=== PATIENT | male | born 1980 ===

== ENCOUNTER 2021-02-04 18:16 | Emergency (ER) | payer OTHER, MEDICAID, SELFPAY ==
[2021-02-04 20:05] VITALS: BP 143/77; PULSE 67; RESP 16; TEMP 37.2; O2SAT 99
--- NOTE | 2021-02-04 20:30 | PC.NURSE ---
received ceftriaxone IM 2 hour prior to arrival in ED.
--- NOTE | 2021-02-04 20:33 | ED.SKABFB ---
HPI - Skin/Abscess/Foreign Bdy General Chief complaint: Skin/Abscess/Foreign Body Stated complaint: right hand injury, red and puffy Time Seen by Provider: 02/04/21 20:22 Source: patient Mode of arrival: Ambulatory Limitations: no limitations History of Present Illness HPI narrative: Patient is a 40-year-old male here for evaluation of redness to his right hand. He has had a prior injury to his right hand requiring surgery and also tendon and nerve repair. This mostly involves the thumb and the index finger. He was seen by a primary provider who thought that he had an abscess and was told to come to the emergency department for further evaluation. Related Data Home Medications Medication Instructions Recorded Confirmed Continuous Blood Gluc Sensor #1 ea 02/03/21 02/04/21 Insulin Disposable Pump Mis #1 ea 02/03/21 02/04/21 insulin aspart U-100 100 unit/mL 1 sliding scale dose SUBCUT 02/03/21 02/04/21 subcutaneous solution USEASDIRECTD Previous Rx's Medication Instructions Recorded doxycycline hyclate 100 mg PO BID 7 Days #14 tab 02/04/21 glucose blood strip #150 ea 02/04/21 Allergies Allergy/AdvReac Type Severity Reaction Status Date / Time No Known Drug Allergies Allergy Verified 02/04/21 14:10 Review of Systems Constitutional Constitutional: Denies fever(s) Musculoskeletal Musculoskeletal: Denies arthralgias and Denies myalgias Integumentary/Breasts Comments: Redness and swelling to right hand Neurologic Comments: He already has numbness to his index finger. He reports no change in any neurologic status. Hematologic/Lymphatic On Anticoagulants: No Allergic/Immunologic Allergic/Immunologic: Denies urticaria Patient History Medical History Infection of right hand Type 1 diabetes mellitus without complications Social History Smoking Status: Never smoker Smoking Status: Never smoker Exam Initial Vital Signs Initial Vital Signs: Vital Signs Temperature 98.9 F 02/04/21 20:05 Pulse Rate 67 02/04/21 20:05 Respiratory Rate 16 02/04/21 20:05 Blood Pressure 143/77 H 02/04/21 20:05 Pulse Oximetry 99 02/04/21 20:05 Const General: cooperative and comfortable Cardio Pulses: radial pulses present on the right Skin Other: Area of redness involving the area between his thumb and index finger in his right hand. It does extend from the pulmonary area to the dorsum of his hand. Does not extend up his thumb. Does not extend up as a next finger. Neuro Other: Does have decreased sensation to his index finger but this is not new. Extrem General: capillary refill normal Psych Appearance: grossly normal and well kempt Course Orders Ordered: Discontinued Medications Doxycycline Hyclate (Doxycycline Hyclate 100 Mg Tablet) 100 mg PO NOW ONE Stop: 02/04/21 20:34 Last Admin: 02/04/21 20:39 Dose: 100 mg Documented by: SANDRO Vital Signs Vital signs: Vital Signs - 8 hr 02/04/21 20:05 Temperature 98.9 F Pulse Rate 67 Respiratory Rate 16 Blood Pressure 143/77 H Pulse Oximetry 99 MDM - Skin/Abscess/Foreign Bdy Lab Data Attestation: I reviewed the patient's lab results. Result diagrams: 02/04/21 20:19 02/04/21 20:19 Labs: Lab Results 02/04/21 02/04/21 02/04/21 Range/Units 20:19 20:19 20:19 WBC 7.6 (4.5-11.0) X10^3/uL RBC 4.54 (4.5-5.9) X10^6/uL Hgb 13.4 L (13.5-17.5) g/dL Hct 39.8 L (41-53) % MCV 87.6 (80-100) fL MCH 29.5 (26-34) PG MCHC 33.7 (30-36) % RDW 13.1 (11.6-14.8) % Plt Count 430 H (150-400) X10^3/uL Neut % (Auto) 58.1 (50-75) % Lymph % (Auto) 30.7 (25-40) % Mitchell % (Auto) 7.8 (3-14) % Eos % (Auto) 2.3 (2-4) % Baso % (Auto) 1.1 (0-2) % Neut # (Auto) 4400 (2792-7465) /uL Lymph # (Auto) 2300 (7855-8078) /uL Mitchell # (Auto) 600 (0-900) /uL Eos # (Auto) 200 (0-450) /uL Baso # (Auto) 100 (0-100) /uL PT 11.5 (10.1-12.7) SECONDS INR 1.0 (0.9-1.3) APTT 39 H (26.4-36.2) SECONDS Sodium 140 (137-145) mmol/L Potassium 3.8 (3.4-5.1) mmol/L Chloride 105 (98-107) mmol/L Carbon Dioxide 25 (22-32) mmol/L BUN 17 (9-20) mg/dL Creatinine 1.03 (0.66-1.25) mg/dL Estimated GFR > 60.0 (>60) mL/min BUN/Creatinine Ratio 16.5 (6-22) Glucose 157 H (70-100) mg/dL Lactate (0.7-2.1) mmol/L Calcium 9.6 (8.4-10.2) mg/dL Total Bilirubin 0.5 (0.2-1.3) mg/dL AST 29 (17-59) IU/L ALT 18 (<50) IU/L Alkaline Phosphatase 67 (38-126) U/L Total Protein 7.9 (6.3-8.2) g/dL Albumin 4.5 (3.5-5.0) g/dL Globulin 3.4 (1.7-4.1) g/dL Albumin/Globulin Ratio 1.3 (1.0-2.8) Lipase 22 L (23-300) U/L Procalcitonin 0.04 (<0.5) ng/mL 02/04/ Range/Units 20:19 WBC (4.5-11.0) X10^3/uL RBC (4.5-5.9) X10^6/uL Hgb (13.5-17.5) g/dL Hct (41-53) % MCV (80-100) fL MCH (26-34) PG MCHC (30-36) % RDW (11.6-14.8) % Plt Count (150-400) X10^3/uL Neut % (Auto) (50-75) % Lymph % (Auto) (25-40) % Mitchell % (Auto) (3-14) % Eos % (Auto) (2-4) % Baso % (Auto) (0-2) % Neut # (Auto) (2064-8753) /uL Lymph # (Auto) (7376-3576) /uL Mitchell # (Auto) (0-900) /uL Eos # (Auto) (0-450) /uL Baso # (Auto) (0-100) /uL PT (10.1-12.7) SECONDS INR (0.9-1.3) APTT (26.4-36.2) SECONDS Sodium (137-145) mmol/L Potassium (3.4-5.1) mmol/L Chloride (98-107) mmol/L Carbon Dioxide (22-32) mmol/L BUN (9-20) mg/dL Creatinine (0.66-1.25) mg/dL Estimated GFR (>60) mL/min BUN/Creatinine Ratio (6-22) Glucose (70-100) mg/dL Lactate 0.9 (0.7-2.1) mmol/L Calcium (8.4-10.2) mg/dL Total Bilirubin (0.2-1.3) mg/dL AST (17-59) IU/L ALT (<50) IU/L Alkaline Phosphatase (38-126) U/L Total Protein (6.3-8.2) g/dL Albumin (3.5-5.0) g/dL Globulin (1.7-4.1) g/dL Albumin/Globulin Ratio (1.0-2.8) Lipase (23-300) U/L Procalcitonin (<0.5) ng/mL MDM Narrative Medical decision making narrative: His labs are reassuring. He does have redness and warmth to the area between his thumb and index finger on his right hand that is concerning for cellulitis. Bedside ultrasound does not show any deep abscess. He has unchanged neurologic status. His vascular status is unremarkable. Is nontoxic appearing. We did discuss potentially doing a needle aspiration to confirm that there was no abscess but given the bedside ultrasound of feel that this is unlikely. Will place the patient on antibiotics. No indication for admission in the hospital. He was given return precautions and follow-up instructions. He expressed understanding and agreement. Discharge Plan Departure Patient Disposition: Home Clinical Impression: Cellulitis Instructions: DI for Cellulitis -- Adult Activity Restrictions/Additional Instructions: I recommend that you take the antibiotics as directed. You can shower like normal and use soap and water like normal. If the redness worsens please return to the emergency department for further evaluation. Contact her primary provider for follow-up. Prescriptions: New doxycycline hyclate 100 mg tablet 100 mg PO BID 7 Days Qty: 14 RF: 0 No Action (DME) glucose blood strip See Rx Instructions .Route .MEDSUPPLY Qty: 150 RF: 3 insulin aspart U-100 100 unit/mL solution 1 sliding scale dose SUBCUT USEASDIRECTD RF: 0 (DME) Insulin Disposable Pump Mis 0 .Route .MEDSUPPLY Qty: 1 RF: 0 (DME) Continuous Blood Gluc Sensor 0 .Route .MEDSUPPLY Qty: 1 RF: 0 Referrals: Ariana Steinberg PA-C [Primary Care Provider] -
[2021-02-04] MEDS: DOXYCYCLINE HYCLATE 100 MG TABLET PO (20:39)
[2021-02-04 20:40] VITALS: BP 140/70; PULSE 79; RESP 14; O2SAT 99
[2021-02-04 20:48] LABS: Add Manual Diff / Slide Review NO; Basophils Absolute Auto 100 /uL (0-100); Basophils Percent Auto 1.1 % (0-2); Eosinophils Absolute Auto 200 /uL (0-450); Eosinophils Percent Auto 2.3 % (2-4); Hematocrit 39.8 % (41-53); Hemoglobin 13.4 g/dL (13.5-17.5); Lymphocytes Absolute Auto 2300 /uL (1100-4500); Lymphocytes Percent Auto 30.7 % (25-40); Mean Corpuscular HGB Conc 33.7 % (30-36); Mean Corpuscular Hemoglobin 29.5 PG (26-34); Mean Corpuscular Volume 87.6 fL (80-100); Monocytes Absolute Auto 600 /uL (0-900); Monocytes Percent Auto 7.8 % (3-14); Neutrophils Absolute Auto 4400 /uL (1500-7000); Neutrophils Percent Auto 58.1 % (50-75); Platelet Count 430 X10^3/uL (150-400); Red Blood Cell Count 4.54 X10^6/uL (4.5-5.9); Red Cell Distribution Width 13.1 % (11.6-14.8); White Blood Cell Count 7.6 X10^3/uL (4.5-11.0)
[2021-02-04 20:59] LABS: Prothrombin Time 11.5 SECONDS (10.1-12.7)
[2021-02-04 21:02] LABS: PTT Partial Thromboplastin Tim 39 SECONDS (26.4-36.2)
[2021-02-04 21:04] LABS: Alanine Aminotransferase 18 IU/L (<50); Albumin 4.5 g/dL (3.5-5.0); Albumin Globulin Ratio 1.3 (1.0-2.8); Alkaline Phosphatase 67 U/L (38-126); Aspartate Aminotransferase 29 IU/L (17-59); BUN Creatinine Ratio 16.5 (6-22); Bilirubin Total 0.5 mg/dL (0.2-1.3); Blood Urea Nitrogen 17 mg/dL (9-20); Calcium 9.6 mg/dL (8.4-10.2); Carbon Dioxide 25 mmol/L (22-32); Chloride 105 mmol/L (98-107); Estimated Glomerular Filt Rate > 60.0 mL/min (>60); Globulin 3.4 g/dL (1.7-4.1); Glucose 157 mg/dL (70-100); HEMOLYSIS < 15 (0-50); Lactate (Lactic Acid) 0.9 mmol/L (0.7-2.1); Lipase 22 U/L (23-300); Potassium 3.8 mmol/L (3.4-5.1); Sodium 140 mmol/L (137-145); Total Protein 7.9 g/dL (6.3-8.2)
[2021-02-04 21:20] LABS: Procalcitonin 0.04 ng/mL (<0.5)
== END 2021-02-04 21:29 | disposition home or self-care (01) ==
PROVIDERS: Emergency Provider Emergency Medicine; PCP Physician Assistant Medical
DX: L03.113 Cellulitis of right upper limb (principal)
CPT/HCPCS: 36415; 80053; 83605; 83690; 84145; 85025; 85610; 85730; 99283

== ENCOUNTER 2021-02-07 10:34 | Emergency (ER) | payer OTHER, MEDICAID, SELFPAY ==
[2021-02-07 10:42] VITALS: BP 148/88; PULSE 76; RESP 16; TEMP 35.9; O2SAT 100; BMI 28.0
--- NOTE | 2021-02-07 12:28 | DI.RAD.S_ITS ---
PROCEDURE: XR HAND RT MIN 3V INDICATIONS: INFECTION right hand TECHNIQUE: 3 views of the hand(s) acquired. COMPARISON: None. FINDINGS: Bones: There is no fracture or dislocation. There is slight flexion deformity of the index finger. Degenerative changes are noted most prominent within the distal interphalangeal joint of the index finger as well as the thumb Soft tissues: Soft tissue swelling is noted most prominent along the index finger. No radiopaque foreign body or soft tissue gas identified. IMPRESSION: Soft tissue swelling without radiopaque foreign body or subcutaneous gas. Degenerative changes of the thumb and index finger. Flexion deformity of the index finger. Dictated by: Yosef Edmonds D.O. on 02/07/2021 at 11:49 Approved by: Yosef Edmonds D.O. on 02/07/2021 at 11:51
--- NOTE | 2021-02-07 12:42 | ED.SKABFB ---
HPI - Skin/Abscess/Foreign Bdy General Chief complaint: Skin/Abscess/Foreign Body Stated complaint: right hand infection Time Seen by Provider: 02/07/21 12:42 Source: patient Mode of arrival: Ambulatory Limitations: no limitations History of Present Illness HPI narrative: This is a 40-year-old male comes to emergency department with complaint of purulent fluid draining from the of his hand. Patient had a chain saw injury, this was several months ago he was seen at [facility] by Hand surgery and states he had surgical repair. Sound like he had to go back for recurrent repair. The area had almost completely healed but there was 1 small area that had prolonged healing but was not fully open. Patient states that he developed redness he was seen here on the by Dr. Holguin. Bedside ultrasound at that time did not show fluid collection he was given a prescription for doxycycline. Patient states that that he did not start this prescription and was instead had Bactrim called in by the hand surgeon. Patient states last night he had increasing swelling and pain and drained fluid. He was able to show me a video and purulent fluid was glued draining from the palmar side of his hand. He states the redness is mostly improved except for 1 small location. He has not had fevers. Has not had any other systemic symptoms. He does not have full range of motion of his 2nd digit but this has been present since his initial injury and is not new. He does not appreciate new numbness or tingling or weakness in his other digits. Patient is insulin-dependent diabetic. Related Data Home Medications Medication Instructions Recorded Confirmed Continuous Blood Gluc Sensor #1 ea 02/03/21 02/04/21 Insulin Disposable Pump Mis #1 ea 02/03/21 02/04/21 insulin aspart U-100 100 unit/mL 1 sliding scale dose SUBCUT 02/03/21 02/04/21 subcutaneous solution USEASDIRECTD Previous Rx's Medication Instructions Recorded glucose blood strip #150 ea 02/04/21 doxycycline hyclate 100 mg PO BID #20 tab 02/07/21 Allergies Allergy/AdvReac Type Severity Reaction Status Date / Time No Known Drug Allergies Allergy Verified 02/04/21 14:10 Review of Systems Review of Systems ROS Unobtainable: All systems reviewed & are unremarkable except as noted in HPI and below Patient History Medical History Infection of right hand Type 1 diabetes mellitus without complications Social History Smoking Status: Never smoker Smoking Status: Never smoker Substance Use Type: does not use Exam Narrative Exam Narrative: GENERAL: Alert and oriented x three, well nourished male in mild distress. HEENT: Head normocephalic, atraumatic, EOMI, pupils reactive, face symmetric, moist mucous membranes NECK: Supple, full range of motion CARDIOVASCULAR: Regular rate and rhythm without murmurs, rubs or gallops. RESPIRATORY: Breath sounds equal bilaterally, no wheezes rales or rhonchi. ABDOMEN: Soft, nontender. Normoactive bowel sounds all 4 quadrants. No guarding or rebound, rigidity, no mass EXTREMITIES: Normal range of motion except for the 2nd digit of patients right hand. Patient has his finger held mildly in flexion, he has difficulty falling extending it. He states this is not new. Patient has sensation to touch throughout all 5 fingers with cap refill less than 2 seconds. Patient has open wound draining a small amount of purulent fluid with palpation on the palmar side of his hand over the 2nd metacarpal. There is some blister which is present. Patient also has some mild erythema extending just over that area and over the dorsum of the hand. It does not appear to be extending significantly beyond the line drawn on 02/04/2021. Patient does have tenderness over the palmar side of a as well as the dorsum at the area of erythema. NEUROLOGICAL: Cranial nerves II through XII grossly intact. Moving all extremities SKIN: Warm, dry see above. Initial Vital Signs Initial Vital Signs: Vital Signs Temperature 96.7 F L 02/07/21 10:42 Pulse Rate 76 02/07/21 10:42 Respiratory Rate 16 02/07/21 10:42 Blood Pressure 148/88 H 02/07/21 10:42 Pulse Oximetry 100 02/07/21 10:42 Course Orders Ordered: ED Orders 02/07/21 12:28 XR hand RT min 3V Stat 02/07/21 13:00 Complete Blood Count AUTO DIFF Stat Comprehensive Metabolic Panel Stat Procalcitonin Stat Discontinued Medications Ibuprofen (Ibuprofen 400 Mg Tablet) 800 mg PO NOW ONE Stop: 02/07/21 13:55 Last Admin: 02/07/21 13:57 Dose: 800 mg Documented by: JOEL Reevaluation(s) Reevaluation #1: Patient would like to leave he was asked to stand till we tapped with the hand surgeon at [facility]. Patient was given ibuprofen 800 mg. He has had additional with some minimal amount of purulent drainage from his hand. Labs and x-ray do not show any acute changes. Patient updated. Patient was able to update me and he has been taking bactrim instead of doxycycline. Time: 14:07 Reevaluation #2: Patient is aware of plan from the hand surgeon. He was given saline as well as some bandaging materials for home and is comfortable with this plan. Time: 15:48 Consultations Consultation #1: Dr. Girard the hand surgeon was able to view patient's email along with the imaging that patient had sent of his abscess draining recommends soapy soaks with saline for 15 minutes twice daily. Dry and bandage. Plan to heal by secondary intention. Patient to continue Bactrim. Time: 15:44 Vital Signs Vital signs: Vital Signs - 8 hr 02/07/21 15:50 Pulse Rate 80 Respiratory Rate 12 Blood Pressure 136/82 Pulse Oximetry 98 MDM - Skin/Abscess/Foreign Bdy Lab Data Attestation: I reviewed the patient's lab results. Result diagrams: 02/07/21 13:00 02/07/21 13:00 Labs: Lab Results 02/07/21 02/07/21 02/07/21 Range/Units 13:00 13:00 13:00 WBC 6.2 (4.5-11.0) X10^3/uL RBC 4.69 (4.5-5.9) X10^6/uL Hgb 14.1 (13.5-17.5) g/dL Hct 41.0 (41-53) % MCV 87.5 (80-100) fL MCH 30.1 (26-34) PG MCHC 34.4 (30-36) % RDW 13.3 (11.6-14.8) % Plt Count 441 H (150-400) X10^3/uL Neut % (Auto) 64.8 (50-75) % Lymph % (Auto) 26.3 (25-40) % Amite % (Auto) 6.1 (3-14) % Eos % (Auto) 1.6 L (2-4) % Baso % (Auto) 1.2 (0-2) % Neut # (Auto) 4000 (5568-1786) /uL Lymph # (Auto) 1600 (9868-0663) /uL Amite # (Auto) 400 (0-900) /uL Eos # (Auto) 100 (0-450) /uL Baso # (Auto) 100 (0-100) /uL Sodium 140 (137-145) mmol/L Potassium 4.2 (3.4-5.1) mmol/L Chloride 107 (98-107) mmol/L Carbon Dioxide 25 (22-32) mmol/L BUN 14 (9-20) mg/dL Creatinine 1.17 (0.66-1.25) mg/dL Estimated GFR > 60.0 (>60) mL/min BUN/Creatinine Ratio 12.0 (6-22) Glucose 84 (70-100) mg/dL Calcium 9.6 (8.4-10.2) mg/dL Total Bilirubin 1.1 (0.2-1.3) mg/dL AST 29 (17-59) IU/L ALT 20 (<50) IU/L Alkaline Phosphatase 69 (38-126) U/L Total Protein 8.0 (6.3-8.2) g/dL Albumin 4.7 (3.5-5.0) g/dL Globulin 3.3 (1.7-4.1) g/dL Albumin/Globulin Ratio 1.4 (1.0-2.8) Procalcitonin 0.04 (<0.5) ng/mL Imaging Data Extremity x-ray #1: Radiologist's Impression: [address] [id number] ReportSigned Patient: Constantine Reyes JMR#: [id number]: [id number]:[id number]/Sex: 40 / MDate of Service: 02/07/21Loc: EDAccession Number: [id number] Procedure: XR hand RT min 3V Ordering Provider: Yessy Alvarez D.O. PROCEDURE: XR HAND RT MIN 3V INDICATIONS: INFECTION right hand TECHNIQUE: 3 views of the hand(s) acquired. COMPARISON: None. FINDINGS: Bones: There is no fracture or dislocation. There is slight flexion deformity of the index finger. Degenerative changes are noted most prominent within the distal interphalangeal joint of the index finger as well as the thumb Soft tissues: Soft tissue swelling is noted most prominent along the index finger. No radiopaque foreign body or soft tissue gas identified. IMPRESSION: Soft tissue swelling without radiopaque foreign body or subcutaneous gas. Degenerative changes of the thumb and index finger. Flexion deformity of the index finger. Dictated by: Yosef Edmonds D.O. on 02/07/2021 at 11:49 Approved by: Yosef Edmonds D.O. on 02/07/2021 at 11:51 MDM Narrative Medical decision making narrative: 40 year old male with complaint of recent infection in the last several days in his hand s/p chainsaw injury with multiple surgical repairs several months ago. Patient started Bactrim which is recommended by his hand surgeon. He did not take doxycycline which was prescribed from the emergency department. Overnight he developed increasing swelling and had a abscess which opened and drained purulent fluid from his hand. It appears to have drained almost all the fluid and unable to express any significant amount in the department. Patient is an insulin-dependent diabetic and his area of infection is over the area that he had his surgical repair. He is also [id number] which is the hand where the infection is present. The hand Fellow was able to view imaging that was sent by the patient himself they recommend soapy saline soaks for 15 minutes twice daily and bandaging with patient to continue with his follow-up this Tuesday. Patient is to continue with Bactrim he was prescribed. This was relayed to the patient he is comfortable with this plan. I also related that the hand surgeon states that the plan is for this to by secondary intention and allowed to continue to drain at this time. Patient was encouraged to return if he has any worsening symptoms. He states that the swelling and redness does seem to be improving after draining while here in the department. Patient was very patient while awaiting follow-up with the hand fellow. Discharge Plan Departure Patient Disposition: Home Clinical Impression: Abscess of hand Activity Restrictions/Additional Instructions: Follow up with your hand surgeon on Tuesday. I spoke with the hand fellow Dr. Girard. He recommends soaking your hand in soapy, saline twice daily and re-bandage and allow to drain. He was able to view your pictures. I would recommend continuing antibiotics at this time the recommend continuing your Bactrim. Prescription at [facility] pharmacy. Wound Care: Keep wound(s) clean and dry. Wash twice daily with soap and water only. Do not use over the counter products (alcohol or peroxide)on the wounds unless instructed by a physician. If wound condition worsens (increased/expanding redness, developing fluid blisters, or worsening pain), either contact your doctor for an urgent re-assessment , or return to the Emergency Department. Return to the Emergency Department for any new or worsening symptoms. Return if fever greater than 100.4 Fahrenheit, increased swelling, increasing pain or worsening symptoms such as increased discharge or spreading redness. New numbness, tingling or weakness. Prescriptions: New doxycycline hyclate 100 mg tablet 100 mg PO BID Qty: 20 RF: 0 Discontinued doxycycline hyclate 100 mg tablet 100 mg PO BID 7 Days Qty: 14 RF: 0 No Action (DME) glucose blood strip See Rx Instructions .Route .MEDSUPPLY Qty: 150 RF: 3 insulin aspart U-100 100 unit/mL solution 1 sliding scale dose SUBCUT USEASDIRECTD RF: 0 (DME) Insulin Disposable Pump Mis 0 .Route .MEDSUPPLY Qty: 1 RF: 0 (DME) Continuous Blood Gluc Sensor 0 .Route .MEDSUPPLY Qty: 1 RF: 0 Referrals: Ariana Steinberg PA-C [Primary Care Provider] -
[2021-02-07 13:07] LABS: Add Manual Diff / Slide Review NO; Basophils Absolute Auto 100 /uL (0-100); Basophils Percent Auto 1.2 % (0-2); Eosinophils Absolute Auto 100 /uL (0-450); Eosinophils Percent Auto 1.6 % (2-4); Hemoglobin 14.1 g/dL (13.5-17.5); Lymphocytes Absolute Auto 1600 /uL (1100-4500); Lymphocytes Percent Auto 26.3 % (25-40); Mean Corpuscular HGB Conc 34.4 % (30-36); Mean Corpuscular Hemoglobin 30.1 PG (26-34); Mean Corpuscular Volume 87.5 fL (80-100); Monocytes Absolute Auto 400 /uL (0-900); Monocytes Percent Auto 6.1 % (3-14); Neutrophils Absolute Auto 4000 /uL (1500-7000); Neutrophils Percent Auto 64.8 % (50-75); Platelet Count 441 X10^3/uL (150-400); Red Blood Cell Count 4.69 X10^6/uL (4.5-5.9); Red Cell Distribution Width 13.3 % (11.6-14.8); White Blood Cell Count 6.2 X10^3/uL (4.5-11.0)
[2021-02-07 13:22] LABS: Alanine Aminotransferase 20 IU/L (<50); Albumin 4.7 g/dL (3.5-5.0); Albumin Globulin Ratio 1.4 (1.0-2.8); Alkaline Phosphatase 69 U/L (38-126); Aspartate Aminotransferase 29 IU/L (17-59); Bilirubin Total 1.1 mg/dL (0.2-1.3); Blood Urea Nitrogen 14 mg/dL (9-20); Calcium 9.6 mg/dL (8.4-10.2); Carbon Dioxide 25 mmol/L (22-32); Chloride 107 mmol/L (98-107); Estimated Glomerular Filt Rate > 60.0 mL/min (>60); Globulin 3.3 g/dL (1.7-4.1); Glucose 84 mg/dL (70-100); HEMOLYSIS < 15 (0-50); Potassium 4.2 mmol/L (3.4-5.1); Sodium 140 mmol/L (137-145)
[2021-02-07 13:39] LABS: Procalcitonin 0.04 ng/mL (<0.5)
[2021-02-07] MEDS: IBUPROFEN 400 MG TABLET 800 MG PO (13:57)
[2021-02-07 15:50] VITALS: BP 136/82; PULSE 80; RESP 12; O2SAT 98
== END 2021-02-07 15:50 | disposition home or self-care (01) ==
PROVIDERS: Emergency Provider Emergency Medicine; PCP Physician Assistant Medical
DX: L02.511 Cutaneous abscess of right hand (principal)
CPT/HCPCS: 36415; 73130; 80053; 84145; 85025; 99283; 99284

== ENCOUNTER → 2021-03-25 11:28 | Outpatient (CLI) | payer OTHER, SELFPAY ==
[2021-03-25 21:09] LABS: COVID19 - ORCAS (NP or Nasal) Negative (Negative)
== END ==
PROVIDERS: PCP Physician Assistant Medical; Visit Provider Physician Assistant Medical
DX: Z01.812 Encounter for preprocedural laboratory examination (principal); Z20.822 Contact with and (suspected) exposure to COVID-19
CPT/HCPCS: U0003

== ENCOUNTER 2023-06-24 14:27 | Emergency (ER) | payer OTHER, MEDICAID, SELFPAY ==
[2023-06-24 14:29] VITALS: BP 136/78; PULSE 98; RESP 16; TEMP 36.9; O2SAT 98; BMI 29.2
--- NOTE | 2023-06-24 14:46 | DI.RAD.S_ITS ---
PROCEDURE: XR ELBOW LT MIN 3V INDICATIONS: cellulits L elbow, worse swelling, r/o septic joint TECHNIQUE: 3 views of the elbow were acquired. COMPARISON: None. FINDINGS: Bones: No acute fractures or dislocations. No suspicious bony lesions. No focal osseous erosion or osteolysis. Soft tissues: No elbow joint effusion. No suspicious soft tissue calcifications. Mild diffuse soft tissue edema. IMPRESSION: Nonspecific soft tissue edema. No joint effusion or osseous erosion is seen to suggest osteomyelitis or septic arthritis. If there is continued clinical concern, MRI could be performed for further evaluation. Approved by: Natanael Noguera M.D. on 06/24/2023 at 15:10
--- NOTE | 2023-06-24 15:13 | ED_ITS ---
HPI - Skin/Abscess/Foreign Bdy <DAVID Parrish - Last Filed: 06/24/23 18:06> General Chief complaint: Skin/Abscess/Foreign Body Stated complaint: infection on LT elbow Time Seen by Provider: 06/24/23 14:42 History of Present Illness HPI narrative: This is a 42-year-old gentleman who presents to the emergency department for worsening pain to the left arm for which he went to the clinic this morning on [facility] and had this evaluated. He feels like the pain is deep and not associated with the joint. He complains of tenderness to palpation. Denies any recent injections or injecting his insulin into his arm. States that his blood sugar has been in the 200s for approximately 1 week. He is had left elbow pain but did not have tenderness until this morning. Patient is type 1 diabetic, has history of cellulitis in the past, denies any hardware to the left elbow. States that he was able to flex and extend his arm without deficit. Denies fever chills, nausea or vomiting. States that he received an antibiotic at the doctor's office and it ended in a cillin but he does not remember what type of antibiotic it was. He thinks it was amoxicillin.. Denies history of blood clots. Related Data Home Medications Medication Instructions Recorded Confirmed Continuous Blood Gluc Sensor #1 ea 02/03/21 02/04/21 Insulin Disposable Pump Mis #1 ea 02/03/21 02/04/21 insulin aspart U-100 100 unit/mL 1 sliding scale dose SUBCUT 02/03/21 02/04/21 subcutaneous solution USEASDIRECTD Previous Rx's Medication Instructions Recorded glucose blood strip #150 ea 02/04/21 doxycycline hyclate 100 mg tablet 100 mg PO BID #20 tabs 02/07/21 Allergies Allergy/AdvReac Type Severity Reaction Status Date / Time No Known Drug Allergies Allergy Verified 02/04/21 14:10 Review of Systems <DAVID Parrish - Last Filed: 06/24/23 18:06> Review of Systems ROS Unobtainable: All systems reviewed & are unremarkable except as noted in HPI and below Patient History <DAVID Parrish - Last Filed: 06/24/23 18:06> Medical History Infection of right hand Type 1 diabetes mellitus without complications Social History Smoking Status: Never smoker Smoking Status: Never smoker Substance Use Type: does not use Exam <DAVID Parrish - Last Filed: 06/24/23 18:06> Narrative Exam Narrative: Reviewed vitals signs and nursing notes. General: Pleasant, sitting upright, in no acute distress, well groomed, afebrile HEENT: symmetrical facial expressions, moist mucous membranes, neck is supple CV: regular rate and rhythm, warm extremities Respiratory: normal work of breathing, without tachypnea or hypoxia. No shortness of breath. GI: abdomen soft, nondistended, without CVA tenderness bilaterally. MSK: moves all extremities, no weakness, normal tone, ambulatory without deficit Skin: brisk capillary refill, without rash or wound, left elbow has palpable tender vein along the medial aspect which patient describes as the deep pain he was referring to. He denies pain in the joint when he moves his arm but describes this areas being tender and is atraumatic. 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 Neuro: clear speech and normal cognition, A&O x3, GCS 15, no focal motor or sensation deficits Initial Vital Signs Initial Vital Signs: Vital Signs Temperature 98.4 F 06/24/23 14:29 Pulse Rate 98 H 06/24/23 14:29 Respiratory Rate 16 06/24/23 14:29 Blood Pressure 136/78 06/24/23 14:29 Pulse Oximetry 98 06/24/23 14:29 Oxygen Delivery Method Room Air 06/24/23 14:29 <Jose Luis Xavier DO - Last Filed: 06/25/23 07:16> Initial Vital Signs Initial Vital Signs: Vital Signs Temperature 98.4 F 06/24/23 14:29 Pulse Rate 98 H 06/24/23 14:29 Respiratory Rate 16 06/24/23 14:29 Blood Pressure 136/78 06/24/23 14:29 Pulse Oximetry 98 06/24/23 14:29 Oxygen Delivery Method Room Air 06/24/23 14:29 Course <DAVID Parrish - Last Filed: 06/24/23 18:06> Orders Ordered: Discontinued Medications Cephalexin HCl (Cephalexin 250 Mg Capsule) 500 mg PO NOW ONE Stop: 06/24/23 15:39 Last Admin: 06/24/23 15:52 Dose: 500 mg Documented By: MALLORIE Doxycycline Hyclate (Doxycycline Hyclate 100 Mg Tablet) 100 mg PO NOW ONE Stop: 06/24/23 15:39 Last Admin: 06/24/23 15:52 Dose: 100 mg Documented By: MALLORIE Vital Signs Vital signs: Vital Signs - 8 hr 06/24/23 14:29 06/24/23 16:38 Temperature 98.4 F Pulse Rate 98 H 87 Respiratory Rate 16 16 Blood Pressure 136/78 140/94 H Pulse Oximetry 98 98 Oxygen Delivery Method Room Air Room Air <Jose Luis Xavier DO - Last Filed: 06/25/23 07:16> Orders Ordered: Discontinued Medications Cephalexin HCl (Cephalexin 250 Mg Capsule) 500 mg PO NOW ONE Stop: 06/24/23 15:39 Last Admin: 06/24/23 15:52 Dose: 500 mg Documented By: MALLORIE Doxycycline Hyclate (Doxycycline Hyclate 100 Mg Tablet) 100 mg PO NOW ONE Stop: 06/24/23 15:39 Last Admin: 06/24/23 15:52 Dose: 100 mg Documented By: MALLORIE Vital Signs Vital signs: Vital Signs - 8 hr 06/24/23 14:29 06/24/23 16:38 Temperature 98.4 F Pulse Rate 98 H 87 Respiratory Rate 16 16 Blood Pressure 136/78 140/94 H Pulse Oximetry 98 98 Oxygen Delivery Method Room Air Room Air MDM - Skin/Abscess/Foreign Bdy <DAVID Parrish - Last Filed: 06/24/23 18:06> Lab Data 06/24/23 16:10 06/24/23 16:10 Labs: Lab Results 06/24/23 06/24/23 06/24/23 Range/Units 16:10 16:10 16:10 WBC 6.0 (4.5-11.0) X10^3/uL RBC 4.50 (4.5-5.9) X10^6/uL Hgb 13.9 (13.5-17.5) g/dL Hct 39.5 L (41-53) % MCV 87.8 (80-100) fL MCH 30.8 (26-34) PG MCHC 35.1 (30-36) % RDW 13.3 (11.6-14.8) % Plt Count 406 H (150-400) X10^3/uL Neut % (Auto) 63.7 (50-75) % Lymph % (Auto) 27.6 (25-40) % [place] % (Auto) 5.5 (3-14) % Eos % (Auto) 2.7 (2-4) % Baso % (Auto) 0.5 (0-2) % Neut # (Auto) 3800 (8403-5414) /uL Lymph # (Auto) 1600 (6244-2171) /uL [place] # (Auto) 300 (0-900) /uL Eos # (Auto) 200 (0-450) /uL Baso # (Auto) 0 (0-100) /uL ESR 15 (0-15) MM/HR D-Dimer 1129 H (<500) ng/ml Sodium 138 (137-145) mmol/L Potassium 3.8 (3.4-5.1) mmol/L Chloride 104 (98-107) mmol/L Carbon Dioxide 26 (22-32) mmol/L BUN 15 (9-20) mg/dL Creatinine 1.10 (0.66-1.25) mg/dL Estimated GFR > 60 (>60) mL/min BUN/Creatinine Ratio 13.6 (6-22) Glucose 196 H (70-100) mg/dL Calcium 9.2 (8.4-10.2) mg/dL Total Bilirubin 1.2 (0.2-1.3) mg/dL AST 28 (17-59) IU/L ALT 25 (<50) IU/L Alkaline Phosphatase 72 (38-126) U/L C-Reactive Protein 0.6 (<1.0) mg/dL Total Protein 7.4 (6.3-8.2) g/dL Albumin 4.2 (3.5-5.0) g/dL Globulin 3.2 (1.7-4.1) g/dL Albumin/Globulin Ratio 1.3 (1.0-2.8) Imaging Data Extremity x-ray #1: Radiologist's Impression: [address] [address] XRay Report Signed Patient: Constantine Reyes MR#: [id number] : 1980 Acct:[id number] Age/Sex: 42 / M Date of Service: 06/24/23 Loc: ED Accession Number: [id number] ?? Procedure: XR elbow LT min 3V Ordering Provider: Ariana Amor PROCEDURE:? XR ELBOW LT MIN 3V ? INDICATIONS:? cellulits L elbow, worse swelling, r/o septic joint ? TECHNIQUE:? 3 views of the elbow were acquired.? ? COMPARISON:? None. ? FINDINGS:? ? Bones:? No acute fractures or dislocations.? No suspicious bony lesions.? No f ocal osseous erosion or osteolysis.? ? Soft tissues:? No elbow joint effusion.? No suspicious soft tissue calcifications.? Mild diffuse soft tissue edema. ? ? IMPRESSION:? Nonspecific soft tissue edema.? No joint effusion or osseous erosion is seen to suggest osteomyelitis or septic arthritis.? If there is continued clinical concern, MRI could be performed for further evaluation. ? ? ? Approved by: Natanael Noguera M.D. on 06/24/2023 at 15:10? US - DVT: Radiologist's Impression: [place] [address] Ultrasound Report Signed Patient: Constantine Reyes MR#: [id number] : 1980 Acct:[id number] Age/Sex: 42 / M Date of Service: 06/24/23 Loc: ED Accession Number: [id number] ?? Procedure: US periph venous up extrem lt Ordering Provider: Ariana AmorROCEDURE:? US PERIPH VENOUS UP EXTREM LT ? INDICATIONS:? Thrombophlebitis versus DVT ? TECHNIQUE:? Real-time imaging, as well as color and pulse Doppler interrogation, was performed of the left upper extremity deep veins from the inferior neck to the antecubital fossa.? ? COMPARISON:? None. ? FINDINGS:? The internal jugular vein, visualized portions of the subclavian vein, axillary, and brachial veins are free of intraluminal thrombus.? Where physically possible, the veins are normally compressible.? Color and pulse Doppler demonstrate normal intraluminal flow, with expected phasicity and pulsatility.? Additional scanning of the cephalic vein of the superficial system demonstrates normal compressibility, without thrombus.? There is occlusive thrombus within the distal basilic vein from the level of the forearm to the elbow. ? IMPRESSION:? Occlusive thrombus within the distal basilic vein.? No acute thrombus of the deeper veins is seen.? Approved by: Natanael Noguera M.D. on 06/24/2023 at 16:21? MDM Narrative Medical decision making narrative: Chief Complaint: left elbow pain/tenderness Multiple etiologies for patient's complaint considered including, but not limited to: Thrombophlebitis, cellulitis, septic joint, DVT, superficial venous thrombosis, osteomyelitis, bacteremia, Buerger's disease I have independently reviewed the patient's vital signs and nursing notes as well as prior records if available. Plan: Patient received cephalexin 500 mg at the clinic prior to coming here to the hospital. Course of Care: Ordered ultrasound for rule out DVT verses thrombophlebitis lab work to evaluate for bacteremia, D-dimer, CBC, CRP, CMP with ESR Patient is neurovascularly intact distal to his left elbow tenderness. It is warm to palpation, suspect cellulitis versus thrombophlebitis versus DVT. There is a palpable cord that runs along the medial venous system. No circumferential edema to the fingers, radial pulses 2+, brisk cap refill. Upper extremity venous duplex ultrasound shows an occlusive thrombus within the distal basilic vein with no acute thrombus of the deeper veins. There is no measurement. Patient does not have circumferential edema, signs of decreased perfusion, he remains neurovascularly intact to the distal forearm. He is low risk with no prior history of venous thrombosis, works in construction, has a history of type 1 diabetes and was started on cephalexin earlier this morning. He has some erythema to the left elbow and tenderness over this vein which is ropey, tender to palpation and along the medial aspect of the forearm to the elbow. I suspect this is most likely thrombophlebitis without suppurative sequelae. I did not continue the antibiotics, his skin does not have tenderness and there is no erythema any longer. This is most likely thrombophlebitis which will not improve with antibiotics. He will follow-up with Dr. Clinton. His lab work does not show a leukocytosis or anemia, blood cultures are pending, no other significant findings on lab work other than his D-dimer being elevated at 1129. Patient's chemistries unremarkable. Social considerations that may affect disposition: none Questions are addressed and there is agreement with the plan and for follow-up. I consulted with the ED attending physician Dr. Xavier as needed for higher level of care considerations and they were available for discussion and recommendations regarding plan of care and diagnostic testing. Patient is appropriate for outpatient management. <Jose Luis Xavier, DO - Last Filed: 06/25/23 07:16> Lab Data Labs: Lab Results 06/24/23 06/24/23 06/24/23 Range/Units 16:10 16:10 16:10 WBC 6.0 (4.5-11.0) X10^3/uL RBC 4.50 (4.5-5.9) X10^6/uL Hgb 13.9 (13.5-17.5) g/dL Hct 39.5 L (41-53) % MCV 87.8 (80-100) fL MCH 30.8 (26-34) PG MCHC 35.1 (30-36) % RDW 13.3 (11.6-14.8) % Plt Count 406 H (150-400) X10^3/uL Neut % (Auto) 63.7 (50-75) % Lymph % (Auto) 27.6 (25-40) % [place] % (Auto) 5.5 (3-14) % Eos % (Auto) 2.7 (2-4) % Baso % (Auto) 0.5 (0-2) % Neut # (Auto) 3800 (2468-4571) /uL Lymph # (Auto) 1600 (3400-1722) /uL [place] # (Auto) 300 (0-900) /uL Eos # (Auto) 200 (0-450) /uL Baso # (Auto) 0 (0-100) /uL ESR 15 (0-15) MM/HR D-Dimer 1129 H (<500) ng/ml Sodium 138 (137-145) mmol/L Potassium 3.8 (3.4-5.1) mmol/L Chloride 104 (98-107) mmol/L Carbon Dioxide 26 (22-32) mmol/L BUN 15 (9-20) mg/dL Creatinine 1.10 (0.66-1.25) mg/dL Estimated GFR > 60 (>60) mL/min BUN/Creatinine Ratio 13.6 (6-22) Glucose 196 H (70-100) mg/dL Calcium 9.2 (8.4-10.2) mg/dL Total Bilirubin 1.2 (0.2-1.3) mg/dL AST 28 (17-59) IU/L ALT 25 (<50) IU/L Alkaline Phosphatase 72 (38-126) U/L C-Reactive Protein 0.6 (<1.0) mg/dL Total Protein 7.4 (6.3-8.2) g/dL Albumin 4.2 (3.5-5.0) g/dL Globulin 3.2 (1.7-4.1) g/dL Albumin/Globulin Ratio 1.3 (1.0-2.8) Discharge Plan Departure Patient Disposition: Home Clinical Impression: Superficial venous thrombosis of arm, Thrombophlebitis Instructions: Superficial Thrombophlebitis Activity Restrictions/Additional Instructions: *You have been diagnosed with a superficial clot vein in your arm. This is the firm part that we can feel and it causes tenderness and pain related to inflammation around it. Please take A superficial clot/thrombosis is self-limiting and treatment is primarily symptomatic. Please use warm compresses to dilate, anti-inflammatory medicatio ns like ibuprofen, compression with an Yonis bandage if needed for prevention swelling and elevation. When symptoms swelling or severe or when the thrombus/clot is extensive or large or if it is in close proximity to the deep venous system, anticoagulants are used to reduce the risk of progression to a deep vein thrombosis/DVT and or a subsequent pulmonary embolism. Since this is not a high-risk clot, repeat exam in 7-10 days is recommended to assess for extension or sooner if your symptoms get worse. Take ibuprofen as needed and there is no recommendation to start anticoagulation at this point however, if your follow-up in 7-10 days shows progression, then anticoagulation could be discussed/initiation. Please use warm compresses frequently until then and stay hydrated. We will continue with the 1st medication they gave you this morning called cephalexin, take this 4 times a day for the next 7 days, feel free to add or hold off and wait to see if this gets worse and then start doxycycline twice a day for the next 7 days and take them with food and water. Do your best with probiotics in between doses. Take ibuprofen and Tylenol as needed for your pain. I really do not think you need the doxycycline since we have documented p roof of a superficial thrombosis and you are tender along that vein. *What to do: *Please continue to take your regular medications as directed. [ ] New medication prescriptions sent to your pharmacy: [ ] [ ] New medication written as a paper prescription [ ] No new medications given Please call and schedule follow up with your primary care provider in 2-3 days, at least for an update. Let them know you were seen in the Emergency Department for the above problem. We will electronically transmit a record of today's note if your PCP or specialist is in our system. *If you do not have a primary care provider please contact [phone] to establish care with one of the [facility] primary care providers. *Return to the Emergency Department for worsening symptoms, inability to keep liquids down, fever greater than 101F, chills, or other concerning symptom. Prescriptions: No Action (DME) glucose blood strip See Rx Instructions .Route .MEDSUPPLY Qty: 150 3RF Rx Instructions: Use 1 strip 5 times a day to check blood sugar. doxycycline hyclate 100 mg tablet 100 mg PO BID Qty: 20 0RF insulin aspart U-100 100 unit/mL solution 1 sliding scale dose SUBCUT USEASDIRECTD (DME) Insulin Disposable Pump Mis 0 .Route .MEDSUPPLY Qty: 1 (DME) Continuous Blood Gluc Sensor 0 .Route .MEDSUPPLY Qty: 1 Referrals: Margarita Clinton MD [Primary Care Provider] - Stand Alone Forms: Patient Portal/API <oJse Luis Xavier, - Last Filed: 06/25/23 07:16> [facility] Attestation: I was immediately available in the department for consultation. Documentation h as been reviewed. I agree with assessment and plan.
--- NOTE | 2023-06-24 15:22 | DI.US.S_ITS ---
PROCEDURE: US PERIPH VENOUS UP EXTREM LT INDICATIONS: Thrombophlebitis versus DVT TECHNIQUE: Real-time imaging, as well as color and pulse Doppler interrogation, was performed of the left upper extremity deep veins from the inferior neck to the antecubital fossa. COMPARISON: None. FINDINGS: The internal jugular vein, visualized portions of the subclavian vein, axillary, and brachial veins are free of intraluminal thrombus. Where physically possible, the veins are normally compressible. Color and pulse Doppler demonstrate normal intraluminal flow, with expected phasicity and pulsatility. Additional scanning of the cephalic vein of the superficial system demonstrates normal compressibility, without thrombus. There is occlusive thrombus within the distal basilic vein from the level of the forearm to the elbow. IMPRESSION: Occlusive thrombus within the distal basilic vein. No acute thrombus of the deeper veins is seen. Approved by: Natanael Noguera M.D. on 06/24/2023 at 16:21
--- NOTE | 2023-06-24 15:34 | PC.NURSE ---
Patient left room with orthodontic lab technician ambulatory without assistance.
--- NOTE | 2023-06-24 15:37 | PC.NURSE ---
Patient received an unknown antibiotic from [facility] this morning. Provider requested to know which antibiotic was given. This RN called medical center and Dr. Margarita Clinton nurse provided the answer of 500mg cephalexin. Provider notified.
[2023-06-24] MEDS: DOXYCYCLINE HYCLATE 100 MG TABLET PO (15:52)
[2023-06-24] MEDS: cephALEXin 250 MG CAPSULE 500 MG PO (15:52)
[2023-06-24 16:38] VITALS: BP 140/94; PULSE 87; RESP 16; O2SAT 98
[2023-06-24 16:39] LABS: Add Manual Diff / Slide Review NO; Basophils Absolute Auto 0 /uL (0-100); Basophils Percent Auto 0.5 % (0-2); Eosinophils Absolute Auto 200 /uL (0-450); Eosinophils Percent Auto 2.7 % (2-4); Hematocrit 39.5 % (41-53); Hemoglobin 13.9 g/dL (13.5-17.5); Lymphocytes Absolute Auto 1600 /uL (1100-4500); Lymphocytes Percent Auto 27.6 % (25-40); Mean Corpuscular HGB Conc 35.1 % (30-36); Mean Corpuscular Hemoglobin 30.8 PG (26-34); Mean Corpuscular Volume 87.8 fL (80-100); Monocytes Absolute Auto 300 /uL (0-900); Monocytes Percent Auto 5.5 % (3-14); Neutrophils Absolute Auto 3800 /uL (1500-7000); Neutrophils Percent Auto 63.7 % (50-75); Platelet Count 406 X10^3/uL (150-400); Red Cell Distribution Width 13.3 % (11.6-14.8)
[2023-06-24 16:53] LABS: D Dimer 1129 ng/ml (<500)
[2023-06-24 16:59] LABS: Alanine Aminotransferase 25 IU/L (<50); Albumin 4.2 g/dL (3.5-5.0); Albumin Globulin Ratio 1.3 (1.0-2.8); Alkaline Phosphatase 72 U/L (38-126); Aspartate Aminotransferase 28 IU/L (17-59); BUN Creatinine Ratio 13.6 (6-22); Bilirubin Total 1.2 mg/dL (0.2-1.3); Blood Urea Nitrogen 15 mg/dL (9-20); C-Reactive Protein Quant 0.6 mg/dL (<1.0); Calcium 9.2 mg/dL (8.4-10.2); Carbon Dioxide 26 mmol/L (22-32); Chloride 104 mmol/L (98-107); Erythrocyte Sedimentation Rate 15 MM/HR (0-15); Estimated Glomerular Filt Rate > 60 mL/min (>60); Globulin 3.2 g/dL (1.7-4.1); Glucose 196 mg/dL (70-100); HEMOLYSIS < 15 (0-50); Potassium 3.8 mmol/L (3.4-5.1); Sodium 138 mmol/L (137-145); Total Protein 7.4 g/dL (6.3-8.2)
== END 2023-06-24 16:40 | disposition home or self-care (01) ==
PROVIDERS: Emergency Provider Nurse Practitioner Critical Care Medicine; PCP Family Medicine
DX: I82.612 Acute embolism and thrombosis of superficial veins of left upper extremity (principal); I80.9 Phlebitis and thrombophlebitis of unspecified site
CPT/HCPCS: 36415; 73080; 80053; 85025; 85379; 85651; 86140; 87040; 93971; 99284